=== PATIENT | male | born 1950 | race African-American/Black ===

== ENCOUNTER 2025-06-06 21:33 | Emergency (ER) | payer OTHER ==
[2025-06-06] MEDS ORDERED: Dexamethasone 10 MG/ML VIAL ONE (21:47)
[2025-06-06] MEDS ORDERED: Magnesium 2 GM/50 ML BAG (IN WATER) ONE (21:47)
[2025-06-06] MEDS ORDERED: Albuterol 2.5 MG (0.5 mL) NEB ONE (21:54)
[2025-06-06 22:09] LABS: #Basophils 0.06 10x3/uL (0.0-0.2); #Eosinophils 0.51 10x3/uL (0.0-0.5); #Monocytes 0.87 10x3/uL (0.0-1.1); #Neutrophils 6.01 10x3/uL (1.5-8.4); %Basophils 0.7 % (0.0-2.0); %Eosinophils 5.6 % (0.0-6.0); %Lymphocytes 17.5 % (18.0-47.0); %Monocytes 9.5 % (0.0-10.0); %Neutrophils 65.9 % (40.0-75.0); Hematocrit 35.7 % (38.8-50.0); Hemoglobin 12.3 g/dL (13.5-17.5); Mean Corpuscular Hemoglobin 30.4 pg (27.0-33.0); Mean Corpuscular Volume 88.4 fL (81.2-95.1); Platelet Count 198 10x3/uL (150-450); Red Blood Cell (RBC) Count 4.04 10x6/uL (4.32-5.72); White Blood Cell (WBC) Count 9.11 10x3/uL (3.5-10.5)
[2025-06-06 22:25] LABS: ALT (SGPT) 13 U/L (Less than 45); AST (SGOT) 19 U/L (11-34); Albumin 3.5 g/dL (3.1-4.5); Alkaline Phosphatase 71 U/L (40-110); Anion Gap 11 mmol/L (10-20); BUN (Urea Nitrogen) 12 mg/dL (8.4-25.7); Bilirubin, Total 0.4 mg/dL (0.3-1.2); Calc. Creatinine Clearance 0 mL/min (70-130); Calcium 9.1 mg/dL (7.8-10.44); Carbon Dioxide 26 mmol/L (23-31); Chloride 101 mmol/L (98-107); Globulin 3.6 g/dL (2.4-3.5); Glucose 158 mg/dL (83-110); Potassium 4.1 mmol/L (3.5-5.1); Sodium 134 mmol/L (136-145)
[2025-06-06 22:31] LABS: Troponin I Less than 0.010 ng/mL (< 0.028)
[2025-06-06] MEDS ORDERED: cefTRIAXone (ROCEPHIN) 1 GM VIAL ONE (22:43)
[2025-06-06 23:49] LABS: Troponin I Less than 0.010 ng/mL (< 0.028)
== END 2025-06-06 23:59 ==
LOC: CSHERS 21:33 → EEVIPCON 21:33 → CSHERS 23:59
DX: J18.9 Pneumonia, unspecified organism (principal)
CPT/HCPCS: 36415; 71045; 80053; 83880; 84484; 85025; 87428; 93005; 94644; 94760; 96374; 96375; J0696; J1100; J3475; J7611